=== PATIENT | female | born 1965 | race Caucasian/White ===

== ENCOUNTER 2020-02-13 16:26 | Emergency (ER) | payer OTHER, SELFPAY ==
[2020-02-13 16:47] VITALS: BP 135/87; PULSE 70; RESP 16; TEMP 36.2; O2SAT 99; BMI 32.1
[2020-02-13 17:45] VITALS: BP 137/95; PULSE 61; RESP 16; O2SAT 98
--- NOTE | 2020-02-13 17:59 | XRR_ITS ---
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 Views: 3 views. COMPARISON: No relevant prior studies available. FINDINGS: Bones/joints: Mild degenerative changes within the medial compartment reflected as mild joint space narrowing. Mild patellofemoral degenerative changes Soft tissues: Normal. XR/XR knee LT 3V* [id number] IMPRESSION: Mild degenerative changes most pronounced medially. No acute process.
--- NOTE | 2020-02-13 17:59 | XRR_ITS ---
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 Views: 3 or more views. COMPARISON: No relevant prior studies available. FINDINGS: Bones/joints: Medial and lateral malleoli are normal. Ankle mortise is symmetrical. No fracture. Hindfoot is unremarkable. Tibiotalar joint and the subtalar joint appears normal. Prior trauma distal fibular and tibial diaphyses. Healed. Degenerative changes talonavicular joint. Spur formation at the insertion of the Achilles' tendon and plantar aponeurosis. Soft tissues: Normal. XR/XR ankle LT min 3V* [id number] IMPRESSION: 1. Unremarkable ankle. See above. 2. Spur formation at the insertion of the Achilles' tendon and plantar aponeurosis.
--- NOTE | 2020-02-13 18:01 | ED_ITS ---
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 Patient describes injury occurred just prior to arrival to the ED. She states that she had a patient fall over on top of her forcing her to the ground. She denies any loss of consciousness or head trauma. She endorses having some left ankle and left knee pain when ambulating. Patient was able to ambulate here to the ED, but does have pain with weightbearing and left knee and ankle. Neck pain with numbness/tingling sensation to both right and left hands. She rates her pain in her knee and ankle 6 out of 10. The numbness and tingling to the hands and mostly in the fingertips. Denies any weakness abdominal pain, bladder or bowel symptoms. Associated symptoms: Deny chest pain, dyspnea, headache(s), nausea, rash, palpitations or vomiting Review of Systems Const: Denies: fever(s), chills or fatigue Eyes: Denies: change in vision or eye discomfort ENMT: Denies: throat pain, odynophagia, nasal discharge or nasal congestion Card: Denies: chest pain, palpitations, edema, swelling of feet/ankles, dyspnea on exertion or orthopnea Resp: Denies: dyspnea, productive cough or non-productive cough GI: Denies: abdominal pain, nausea, vomiting, diarrhea, constipation or hematochezia : Denies: flank pain, dysuria or hematuria Musc: Reports: neck pain and extremity pain (Left ankle and left knee pain); Denies: back pain or extremity swelling Skin/Breast: Denies: rash or new lesions Neuro: Denies: headache(s), numbness in extremities or weakness in extremities Physical Exam Const: COMMON NORMALS: no acute distress, patient oriented x3, healthy appear ing and alert GENERAL APPEARANCE: cooperative and comfortable HENMT: COMMON NORMALS: normocephalic HEAD & SCALP: normocephalic MOUTH: Normal oral and palatal mucosa present THROAT: posterior oropharynx normal and uvula midline Eye: COMMON NORMALS: Equal, round and reactive pupils present and conjunctivae normal CONJUNCTIVA: Yes conjunctivae normal PUPIL: Yes Equal, round and reactive pupils present Neck/C-Spine: COMMON NORMALS: supple GENERAL: Yes normal visual inspection CERVICAL SPINE: Yes cervical ROM normal, No pain with cervical ROM, Yes Cervical spine tenderness C6 and C7 and Yes Paracervical muscle tenderness bilateral Resp: COMMON NORMALS: normal respiratory effort, No retractions, No use of accessory muscles and clear to auscultation bilaterally AUSCULTATION: clear to auscultation bilaterally Cardio: COMMON NORMALS: regular rate, regular rhythm, S1 normal heart sound present, S2 normal heart sound present, No gallops present (Cardio), No clicks present (Cardio), No murmurs present (Cardio) and Peripheral pulses 2+ throughout RATE: regular rate RHYTHM: regular rhythm HEART SOUNDS: S1 normal heart sound present and S2 normal heart sound present PERIPHERAL PULSES: Peripheral pulses 2+ throughout GI: COMMON NORMALS: Normal to inspection, nondistended, normoactive bowel sounds present, Soft to palpation, non-tender and no masses PALPATION: Yes Soft to palpation : COMMON NORMALS: Yes no CVA tenderness BLADDER/KIDNEY EXAM: Yes no CVA tenderness Back/Pelvis: COMMON NORMALS: no CVA tenderness Extremity: NARRATIVE EXTREMITY EXAM: Patient has left knee tenderness upon palpation on the lateral medial aspect knee joint. Patient also has some tenderness on lateral aspect of left ankle. GENERAL: Yes normal exam except as noted Neuro: COMMON NORMALS: patient oriented x3, moves all extremities and no sensory deficits noted SENSORIUM/ORIENTATION: Yes alert GAIT: Yes Normal gait present (Patient was limping due to left ankle and knee pain when weightbearing.) MOTOR EXAM: 5/5 motor strength present throughout Skin: COMMON NORMALS: no rashes or lesions noted GENERAL SKIN EXAM: no rashes or lesions noted and dry skin Course Vital Signs: Vital signs: Vital Signs Temperature 97.2 F L 02/13/20 16:47 Pulse Rate 61 02/13/20 17:45 Respiratory Rate 16 02/13/20 17:45 Blood Pressure 139/101 02/13/20 20:19 Pulse Oximetry 98 02/13/20 17:45 MDM - General Adult MDM Narrative: Medical decision making narrative: 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 Patient complaining of some cervical neck pain, and left knee and ankle pain. Left ankle had some mild swelling that was tender to palpation. C-spine was tender upon palpation and the paracervical muscles were tender as well. X-ray of both left knee and ankle showed no acute fractures. CT of cervical spine was performed showed no acute fractures or findings. Patient was diagnosed with a left ankle sprain, left knee pain and cervical neck muscle strain. Patient given crutches and her left ankle was Lance wrapped. Follow-up with PCP for reevaluation in 7 to 10 days. Ice, elevate and rest left leg. Take ibuprofen for pain and inflammation. Worker's Comp. paperwork was filled out and signed. Return to ED precautions given. Patient understood and agrees with plan. Imaging Data^: Xray Ortho: Attestation: I personally reviewed and interpreted this imaging study as follows: My impression: Left knee and left ankle x-ray showed no acute fractures or findings. Other CT: Attestation: I personally reviewed and interpreted this imaging study as follows: Radiologist's impression: [place] [address] CT Scan Report Signed Patient: Chey Anthony Unit #: [id number] : 1965 Age/Sex: 54 / F ADM Date: 02/13/20 Loc: ER Room/Bed: Attending Dr: Ordering Provider/Ordering MD: Raymond Jc Date of Service: 02/13/20 Procedure(s): CT cervical spin wo con* [id number] Accession Number(s): [id number] Report Number: [id number] PROCEDURE INFORMATION: Exam: CT Cervical Spine Without Contrast Exam date and time: 02/13/2020 6:05 PM Age: 54 years old Clinical indication: Injury or trauma; Injury history: 450 lb person fell on patient. ; Work related; Initial encounter; Blunt trauma and crushing; Injury details: PT C/O neck and upper back pain. Tingling in hands; Additional info: Neck pain with work place injury TECHNIQUE: Imaging protocol: Computed tomography images of the cervical spine without contrast. Radiation optimization: All CT scans at this facility use at least one of these dose optimization techniques: automated exposure control; mA and/or kV adjustment per patient size (includes targeted exams where dose is matched to clinical indication); or iterative reconstruction. COMPARISON: No relevant prior studies available. RADIATION DOSE METRICS: Total DLP (mGy-cm): 1024.09 FINDINGS: Vertebrae: The vertebral body alignment and stature is intact. The facets are intact with mild degenerative changes. At C6-C7 there is mild disc space narrowing and degenerative endplate changes. No central canal or foraminal stenosis. C2-C3: No significant disc protrusion. No severe spinal canal stenosis. No significant neural foraminal narrowing. C3-C4: No significant disc protrusion. No severe spinal canal stenosis. No significant neural foraminal narrowing. C4-C5: No significant disc protrusion. No severe spinal canal stenosis. No significant neural foraminal narrowing. C5-C6: No significant disc protrusion. No severe spinal canal stenosis. No significant neural foraminal narrowing. C6-C7: No significant disc protrusion. No severe spinal canal stenosis. No significant neural foraminal narrowing. C7-T1: No significant disc protrusion. No severe spinal canal stenosis. No significant neural foraminal narrowing. Soft tissues: Unremarkable. Lungs: Lung apices are normal. CT/CT cervical spin wo con* [id number] IMPRESSION: 1. No fracture or acute finding. Radiation Dose CTDIVOL = (mGy): DLP = 1024.09 (mGy-cm) Dictated By: Hiram Zarate Signed By: Hiram Zarate Signed Date/Time: 02/13/201930 DD/ 29 Discharge Plan Discharge Patient Disposition: Home Clinical Impression: Left ankle sprain Qualifiers: Encounter type: initial encounter Involved ligament of ankle: anterior talofibular ligament Qualified Code(s): S93.492A - Sprain of other ligament of left ankle, initial encounter Knee pain Qualifiers: Chronicity: acute Laterality: left Qualified Code(s): M25.562 - Pain in left knee Cervical muscle strain Qualifiers: Encounter type: initial encounter Qualified Code(s): S16.1XXA - Strain of muscle, fascia and tendon at neck level, initial encounter Condition: Stable Prescriptions: No Action cyclobenzaprine 10 mg Tablet 10 mg PO PRN RF: 0 gabapentin 300 mg Capsule 300 mg PO DAILY RF: 0 levothyroxine [Synthroid] 200 mcg Tablet 250 mcg PO DAILY RF: 0 Cymbalta 60 mg Capsule,Delayed Release(Dr/Ec) 60 mg PO DAILY RF: 0 Keto Pills 1 cap PO BID RF: 0 cyanocobalamin (vitamin B-12) See Rx Instructions .ROUTE .COMPLEX RF: 0 Discharge Orders: Discharge Order (Routine); Ordered 02/13/20 Ordered By: Raymond Jc Discharge Diet: Regular Discharge Activity: Increase activity as tolerated Patient Instructions: Ankle Sprain (ED) Activity Restrictions/Additional Instructions: Follow-up with medical provider as directed in 5-7 days. Use crutches to help with ambulation and to give left ankle rest for the next 48 hours. then increase weightbearing as tolerated. Rest, ice and elevate left leg to help with symptoms. Continue taking all medications as prescribed. Take [id number] ibuprofen 600 mg dose 3 times a day. Return to the ER or your medical provider if condition worsens. Please read and understand discharge instructions. If any questions, please ask. Stand Alone Forms: Work/School Release Discharge Date/Time: 02/13/20 20:21 Coding Level of Care Code ED Medical Assembly for Jesse Fwd Exam Comprehensive
[2020-02-13] MEDS: ketorolac 60 mg/2 mL INJ IM (18:24)
[2020-02-13 20:19] VITALS: BP 139/101
== END 2020-02-13 20:21 | disposition home or self-care (01) ==
PROVIDERS: Emergency Provider Physician Assistant
DX: S93.492A Sprain of other ligament of left ankle, initial encounter (principal); M25.562 Pain in left knee; S16.1XXA Strain of muscle, fascia and tendon at neck level, initial encounter; W03.XXXA Other fall on same level due to collision with another person, initial encounter; Y99.0 Civilian activity done for income or pay
CPT/HCPCS: 12345; 72125; 73562; 73610; 96372; 99281; 99283; E0114; J1885

== ENCOUNTER → 2020-04-21 16:08 | Outpatient (BNVA) | payer OTHER, SELFPAY | PROVIDERS: Visit Provider Nurse Practitioner Family | DX: Z11.59 Encounter for screening for other viral diseases (principal) | CPT/HCPCS: 87635 ==

== ENCOUNTER 2020-05-04 17:58 | Emergency (ER) | payer OTHER, SELFPAY ==
--- NOTE | 2020-05-04 18:05 | CTR_ITS ---
PROCEDURE INFORMATION: Exam: CT Head Without Contrast Exam date and time: 05/04/2020 6:56 PM Age: 54 years old Clinical indication: Other: [employer] HENAO, shivering, blurry vision; Patient HX: HENAO, blurry vision, shivering TECHNIQUE: Imaging protocol: Computed tomography of the head without contrast. Radiation optimization: All CT scans at this facility use at least one of these dose optimization techniques: automated exposure control; mA and/or kV adjustment per patient size (includes targeted exams where dose is matched to clinical indication); or iterative reconstruction. COMPARISON: No relevant prior studies available. RADIATION DOSE METRICS: Total DLP (mGy-cm): 879.01 FINDINGS: Brain: Normal. No hemorrhage. Unremarkable white matter. No mass effect. Cerebral ventricles: No ventriculomegaly. Bones/joints: Unremarkable. No acute fracture. Paranasal sinuses: Visualized sinuses are unremarkable. No fluid levels. Mastoid air cells: Visualized mastoid air cells are well aerated. Soft tissues: Unremarkable. CT/CT head wo con* [id number] IMPRESSION: No acute intracranial abnormality. Radiation Dose CTDIVOL = (mGy): DLP = 879.01 (mGy-cm)
[2020-05-04 18:35] VITALS: BP 158/108; PULSE 71; RESP 18; TEMP 36.6; O2SAT 98; BMI 33.3
[2020-05-04 21:13] VITALS: BP 174/109; PULSE 65; RESP 18; O2SAT 100
--- NOTE | 2020-05-04 21:14 | CTR_ITS ---
PROCEDURE INFORMATION: Exam: CT Angiography Head With Contrast Exam date and time: 05/04/2020 9:30 PM Age: 54 years old Clinical indication: Pain; Headache; Additional info: HENAO TECHNIQUE: Imaging protocol: Computed tomography angiography of the head with intravenous contrast. 3D rendering (Not supervised by radiologist): MIP and/or 3D reconstructed images were created by the technologist. Radiation optimization: All CT scans at this facility use at least one of these dose optimization techniques: automated exposure control; mA and/or kV adjustment per patient size (includes targeted exams where dose is matched to clinical indication); or iterative reconstruction. Contrast material: OMNI 350; Contrast volume: 95 ml; Contrast route: INTRAVENOUS (IV); COMPARISON: CT head wo con* [id number] 2020-05-04 19:08 RADIATION DOSE METRICS: Total DLP (mGy-cm): 2147.88 FINDINGS: ANTERIOR CIRCULATION: Right internal carotid artery: Unremarkable. Intracranial segment is patent with no significant stenosis. No aneurysm. Right middle cerebral artery: Unremarkable. No occlusion or significant stenosis. No aneurysm. Right anterior cerebral artery: Unremarkable. No occlusion or significant stenosis. No aneurysm. Left internal carotid artery: Unremarkable. Intracranial segment is patent with no significant stenosis. No aneurysm. Left middle cerebral artery: Unremarkable. No occlusion or significant stenosis. No aneurysm. Left anterior cerebral artery: Unremarkable. No occlusion or significant stenosis. No aneurysm. POSTERIOR CIRCULATION: Right vertebral artery: Unremarkable. No occlusion or significant stenosis. No aneurysm. Left vertebral artery: Unremarkable. No occlusion or significant stenosis. No aneurysm. Basilar artery: Unremarkable. No occlusion or significant stenosis. No aneurysm. Right posterior cerebral artery: Unremarkable. No occlusion or significant stenosis. No aneurysm. Left posterior cerebral artery: Unremarkable. No occlusion or significant stenosis. No aneurysm. Brain: No definite mass, mass effect, or midline shift. Cerebral ventricles: Normal. No ventriculomegaly. Bones/joints: Unremarkable. No acute fracture. Soft tissues: Unremarkable. IMPRESSION: No large vessel stenosis or occlusion. PROCEDURE INFORMATION: Exam: CT Angiography Neck With Contrast Exam date and time: 05/04/2020 9:30 PM Age: 54 years old Clinical indication: Pain; Headache; Additional info: HENAO TECHNIQUE: Imaging protocol: Computed tomography angiography of the neck with intravenous contrast. 3D rendering (Not supervised by radiologist): MIP and/or 3D reconstructed images were created by the technologist. Radiation optimization: All CT scans at this facility use at least one of these dose optimization techniques: automated exposure control; mA and/or kV adjustment per patient size (includes targeted exams where dose is matched to clinical indication); or iterative reconstruction. Contrast material: OMNI 350; Contrast volume: 95 ml; Contrast route: INTRAVENOUS (IV); COMPARISON: CT head wo [facility]* [id number] 2020-05-04 19:08 RADIATION DOSE METRICS: Total DLP (mGy-cm): 2147.88 FINDINGS: Right common carotid artery: Mild atherosclerotic plaque in the predominately distal right common carotid artery and the bifurcation. Right internal carotid artery: MODERATE LOOPING TORTUOSITY OF THE MID RIGHT CERVICAL ICA. Mild atherosclerotic plaque in the carotid bulb and proximal right internal carotid artery with less than 50% stenosis by NASCET criteria. Right external carotid artery: No occlusion or stenosis of the origin. Right vertebral artery: No stenosis. No dissection or occlusion. Left common carotid artery: Mild atherosclerotic plaque in the predominately distal left common carotid artery and the bifurcation. Left internal carotid artery: LOOPING TORTUOSITY OF THE DISTAL LEFT CERVICAL ICA. Mild atherosclerotic plaque in the proximal left internal carotid artery and carotid bulb with less than 50% stenosis by NASCET criteria. Left external carotid artery: No occlusion or stenosis of the origin. Left vertebral artery: No stenosis. No dissection or occlusion. Bones/joints: No acute fracture. Soft tissues: Normal. No significant soft tissue swelling. CT/CT angio headneck* [id number] IMPRESSION: Mild bilateral proximal ICA atherosclerotic disease with less than 50% stenosis. REFERENCES: NASCET CRITERIA. The degree of internal carotid artery stenosis is based on NASCET criteria. Normal is no stenosis. Mild is less than 50% stenosis. Moderate is 50-69% stenosis. Severe is 70% to 99% stenosis. Total occlusion is no detectable patent lumen. Radiation Dose CTDIVOL = (mGy): DLP = 2147.88~2147.88 (mGy-cm)
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
[2020-05-04] MEDS: diphenhydrAMINE 50 mg/mL SDV 1mL IVP (21:23)
[2020-05-04] MEDS: metoclopramide 5 mg/mL SDV 2 mL 10 MG IVP (21:24)
[2020-05-04] MEDS: iohexol 350 mg/mL 100 mL Btl IV (21:42)
[2020-05-04 21:58] LABS: Basophils # 0.1 10^3/uL (0.0-0.1); Basophils % 0.6 %; Eosinophils # 0.1 10^3/uL (0.0-0.8); Eosinophils % 1.1 %; Hematocrit 43.3 % (37.0-47.0); Hemoglobin 13.6 g/dL (11.5-15.3); Lymphocytes # 2.7 10^3/uL (0.8-4.8); Lymphocytes % 30.3 %; Mean Corpuscular HGB Conc 31.4 g/dL (30.0-36.0); Mean Corpuscular Hemoglobin 28.5 pg (28.0-34.0); Mean Corpuscular Volume 90.8 fL (81-99); Mean Platelet Volume 9.8 fL (7.4-10.4); Monocytes # 0.7 10^3/uL (0.2-0.9); Monocytes % 8.3 %; Neutrophils # 5.22 10^3/uL (1.8-7.7); Neutrophils % 59.4 %; Nucleated Red Blood Cells % 0 %; Platelet Count 330 10^3/cmm (130-400); Red Blood Count 4.77 10^6/uL (4.1-5.3); Red Cell Distribution Width 13.2 % (12.1-15.1); White Blood Count 8.8 10^3/uL (4.0-10.0)
[2020-05-04] MEDS: ketorolac 30 mg/mL INJ 15 MG IVP (22:17)
[2020-05-04 22:25] VITALS: BP 111/69; PULSE 59; RESP 18; O2SAT 100
[2020-05-04 22:28] LABS: Alanine Aminotransferase 23 U/L (0-33); Albumin Level 4.4 g/dL (3.5-5.2); Alkaline Phosphatase 131 IU/L (35-105); Anion Gap 13.6 (5-19); Aspartate Amino Transferase 22 U/L (0-32); Blood Urea Nitrogen 16 mg/dL (6-20); Calcium 9.1 mg/dL (8.5-10.5); Carbon Dioxide 26 mmol/L (22-29); Chloride 103 mmol/L (98-107); Globulin 2.8 g/dL (1.3-4.6); Glomerular Filtration Rate 103.8 mL/min (90-130); Glucose 101 mg/dL (65-115); Osmolality Calculated 289 mOsm/kg (285-295); Potassium 3.6 mmol/L (3.5-5.1); Sodium 139 mmol/L (136-145); Total Bilirubin 0.4 mg/dL (0.15-1.2); Total Protein 7.2 g/dL (6.6-8.7)
== END 2020-05-04 22:25 | disposition home or self-care (01) ==
PROVIDERS: Emergency Provider Emergency Medicine
DX: R51.9 Headache, unspecified (principal)
CPT/HCPCS: 12345; 70450; 70496; 70498; 80053; 85025; 96374; 96375; 99283; J1200; J1885; J2765; Q9967

== ENCOUNTER → 2020-06-24 11:14 | Outpatient (BNVA) | payer OTHER, SELFPAY | PROVIDERS: PCP Family Medicine; Visit Provider Nurse Practitioner Family | DX: Z20.828 Contact with and (suspected) exposure to other viral communicable diseases (principal); J06.9 Acute upper respiratory infection, unspecified | CPT/HCPCS: 87635 ==